=== PATIENT | female | born 1990 | race Caucasian/White ===

== ENCOUNTER 2025-08-05 12:33 | Outpatient (CLI) | payer OTHER, SELFPAY ==
--- NOTE | ~2025-08-05 | MR_ITS ---
EXAM/PROCEDURE: MR brain/brain stem wo/w con HISTORY: headache with positional changes COMPARISON: None available. TECHNIQUE: Standard technique for pre and postcontrast enhanced brain MRI performed FINDINGS: No mass, mass effect or hemorrhage. No restricted diffusion or acute ischemic event. No post enhancement pathology on contrast enhanced sequences. Brainstem and cerebellum appear normal. Vascular flow voids patent at the skull base. Mild mucoperiosteal thickening in the the thyroid air cells. The paranasal periorbital and calvarial structures otherwise appear normal. IMPRESSION: Mild paranasal sinus disease. Otherwise negative pre and postcontrast enhanced brain MRI. Reviewed, dictated and finalized at [facility]
== END 2025-08-05 12:34 | disposition home or self-care (01) ==
LOC: MICIMG 12:36
DX: R51.9 Headache, unspecified (principal)
CPT/HCPCS: 70553; A9577